=== PATIENT | male | born 1985 | race Two or more races ===

== ENCOUNTER 2016-12-02 00:29 | Emergency (ER) | payer SELFPAY ==
--- NOTE | ~2016-12-02 | EHP ---
ER History and Physical [place] [id number] [facility] [place]. [address] NAME: BALJIT ARIAS : 81 STATUS : REG ER PAT#: [id number] AGE: 30 ADM/REG DATE : 12/02/16 MR#: [id number] REPORT SERV DATE: 12/02/16 DICTATED BY: JUANITA ALBERTS DATE: 12/02/16 REPORT STATUS : Draft TRANSCRIBED BY: RADHA DATE: 12/02/16 ADDENDUM: I spoke with Mr. Ontiveros by way of the language line. He has diffuse plaque-type psoriatic arthritis. I was able to explain to him his condition. He will need likely oral systemic therapy for this condition; however, the toxicity is something that I am not comfortable taking on as a one time provider and the cost is something that Mr. Ontiveros cannot accommodate at this time, so I am going to send him to see Dr. Lniares who is a family practice doctor, who actually has a skin screening clinic hoping that he will be able to help Mr. Ontiveros with further treatment/medication help. I will help treat his symptoms here in the emergency room. I have discussed this with him. He voices understanding of the instructions. He shows no signs of any type of toxicity or instability. He has no other medical problems. FELICIANO/RADHA Juanita Alberts M.D. / [id number]
== END 2016-12-02 01:34 | disposition home or self-care (01) ==
LOC: ER 00:29
DX: L40.0 Psoriasis vulgaris (principal); I10 Essential (primary) hypertension
CPT/HCPCS: 96372; 99283; J1200